=== PATIENT | male | born 1980 | race Caucasian/White ===

== ENCOUNTER 2019-08-21 12:31 | Inpatient (IN) | payer OTHER ==
[2019-08-21 14:15] VITALS: BMI 22.4
--- NOTE | 2019-08-21 15:47 | HP ---
COWS - Scale Resting Pulse: 1= [place] 81-100 Sweatin=Flushed/Facial Moisture Restless Observation: 0= Sits Still Pupil Size: 0= Normal to Room Light Bone or Joint Aches: 1= Mild Discomfort Runny Nose/ Eye Tearin= Nasal Congestion GI Upset > 30mins: 3= Vomiting/Diarrhea Tremor Observation: 2= Slight Tremor Visible Yawning Observation: 1= 1-2x During Session Anxiety or Irritability: 1=Feels Anxious/Irritable Goose Flesh Skin: 0=Smooth Skin COWS Score: 12 CIWA Score - Admission Criteria OASAS Guidelines: Admission for Medically Managed Detox: Requires at least one of the followin. CIWA greater than 12 2. Seizures within the past 24 hours 3. Delirium tremens within the past 24 hours 4. Hallucinations within the past 24 hours 5. Acute intervention needed for co occurring medical disorder 6. Acute intervention needed for co occurring psychiatric disorder 7. Severe withdrawal that cannot be handled at a lower level of care (continued vomiting, continued diarrhea, abnormal vital signs) requiring intravenous medication and/or fluids 8. Admitting History and Physical - Smoking History Smoking history: Smoker current status UNK Have you smoked in the past 12 months: No Admission ROS S - HPI Chief Complaint: Detox heroin Allergies/Adverse Reactions: Allergies Allergy/AdvReac Type Severity Reaction Status Date / Time ziprasidone [From Obidon] Allergy Severe Difficulty Verified 08/21/19 14:09 Breathing History of Present Illness: 39 year old male with history of asthma, seizures, here for heroin detox. Last here in February for detox but left that same day because he states that he is not ready. No legal problems. On Depakote 1500mg, 750 twice a day. Last took his meds day before yesterday. 2 nights ago slept outside in the rainstorm and now reports productive cough (green sputum) and pleuritic chest pain since then. Heroin: 20 bags per day, IV use in arms, last used yesterday; been using for 25 years. Longest sobriety 1 year in 2011. Has had withdrawal seizures, last in 2011 when he stopped himself. Last normal seizure was 1 month ago for which he went to [facility]. 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 Family: [place], [place]; mom, kids and family in [place] - Ebola screening Have you traveled outside of the country in the last 21 days: No Have you had contact with anyone from an Ebola affected area: No Do you have a fever: No - Review of Systems Constitutional: Chills, Fever EENT: reports: Blurred Vision, Nose Congestion Respiratory: reports: Shortness of Breath, Productive cough (green sputum) Cardiac: reports: Chest Pain (in deep inhalation) GI: reports: No Symptoms Reported, Diarrhea, Nausea, Vomiting : reports: No Symptoms Reported Musculoskeletal: reports: Back Pain, Joint Pain (wrist pain and hand pain) Integumentary: reports: No Symptoms Reported Neuro: reports: Headache, Weakness Endocrine: reports: Increased Thirst, Unexplained Weight Loss Hematology: reports: No Symptoms Reported Psychiatric: reports: Judgement Intact, Mood/Affect Appropiate, Orientated x3, Agitated, Anxious Patient History - Smoking Cessation Smoking history: Smoker current status UNK Have you smoked in the past 12 months: No Hx Chewing Tobacco Use: No - Substances abused Heroin Substance route: Injection Frequency: Daily Amount used: 15 bags or more Age of first use: 11 Date of last use: 08/20/19 Cocaine Substance route: Injection Frequency: Daily Amount used: $60 Age of first use: 12 Date of last use: 08/20/19 Admission Physical Exam BHS - Vital Signs Vital Signs: Vital Signs - 24 hr 08/21/19 14:12 Temperature 97.3 F L Pulse Rate 81 Respiratory 16 Rate Blood Pressure 108/58 L - Physical General Appearance: Yes: No Apparent Distress HEENTM: Yes: EOMI Respiratory: Yes: Chest Non-Tender, Crackles, Wheezing Breast: Yes: Within Normal Limits Cardiology: Yes: Regular Rhythm, Regular Rate Abdominal: Yes: Normal Bowel Sounds, Non Tender, Flat, Soft Back: Yes: Within Normal Limits Musculoskeletal: Yes: Within Normal Limits Extremities: Yes: Normal Capillary Refill, Normal Inspection, Normal Range of Motion, Non-Tender 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 NML intact, Fully Oriented, Alert, Motor Strength 5/5, Normal Mood/Affect Integumentary: Yes: Dry, Warm - Diagnostic (1) Heroin dependence Current Visit: Yes Status: Acute Cleared for Admission S - Detox or Rehab [facility] Level of Care: Medically Managed Breathalyzer - Breathalyzer Breathalyzer: 0 Urine Drug Screen - Test Device Lot number: [id number] Expiration date: 03/24/21 - Control Is test valid?: Yes - Results Drug screen NEGATIVE: No Urine drug screen results: THC-Marijuana, FEN-Fentanyl, MOP-Opiates Inpatient Rehab Admission - Rehab Decision to Admit Inpatient rehab admission?: No
--- NOTE | 2019-08-21 16:13 | PN ---
Teaching Attending Note Name of Resident: Justice Alonso ATTENDING PHYSICIAN STATEMENT I saw and evaluated the patient. I reviewed the resident's note and discussed the case with the resident. I agree with the resident's findings and plan as documented. SUBJECTIVE: 39 yo with h/o asthma and seizure-- here for heroin detox. On depakote for seizures. uses 2 bundles of heroin/day. OBJECTIVE: Vital Signs - 24 hr 08/21/19 14:12 Temperature 97.3 F L Pulse Rate 81 Respiratory 16 Rate Blood Pressure 108/58 L alert and oriented tremulous ASSESSMENT AND PLAN: heroin use disorder- methadone detox.
[2019-08-21] MEDS ORDERED: IBUPROFEN 400 MG TABLET (FP) PO PRN (16:31)
[2019-08-21] MEDS ORDERED: cloNIDine HCL 0.1 MG TABLET PO PRN (16:31)
[2019-08-21] MEDS ORDERED: hydrOXYzine PAMOATE 25 MG CAPSULE (FP) PO PRN (16:31)
[2019-08-21] MEDS ORDERED: MAG HYDROX/AL HYDROX/SIMETH 30 ML UNIT-DOSE CUP PO PRN (16:31)
[2019-08-21] MEDS ORDERED: MENTHOL/PHENOL 1 EACH UD MM PRN (16:31)
[2019-08-21] MEDS ORDERED: MAGNESIUM CITRATE 300 ML BOTTLE PO PRN (16:31)
[2019-08-21] MEDS ORDERED: BISMUTH SUBSALICYLATE 524 MG/30 ML UD PO PRN (16:31)
[2019-08-21] MEDS ORDERED: ACETAMINOPHEN 325 MG TABLET (FP) PO PRN ×2 (16:31)
[2019-08-21] MEDS ORDERED: MAGNESIUM HYDROX 2400MG/30ML ORAL SUSPENSION 30 ML CUP PO PRN (16:31)
[2019-08-21] MEDS ORDERED: METHADONE HCL 10 MG TABLET (FOR DETOX USE ONLY) PO ONE (17:30)
[2019-08-21] MEDS: NICOTINE 14 MG/24 HOURS TOPICAL PATCH TD SCH (17:41)
[2019-08-21] MEDS: MELATONIN 5 MG TABLETS PO PRN (22:30)
[2019-08-21] MEDS: THIAMINE HCL 100 MG TABLET (FP) PO SCH (22:30)
[2019-08-22] MEDS: METHOCARBAMOL 500 MG TABLET PO PRN ×2 (07:43→10:30)
[2019-08-22] MEDS ORDERED: METHADONE HCL 10 MG TABLET (FOR DETOX USE ONLY) ONE (09:15)
[2019-08-22] MEDS ORDERED: METHADONE HCL 5 MG TABLET (FOR DETOX USE ONLY) ONE (09:15)
[2019-08-22 10:00] LABS: HEMATOCRIT 37.3 % (35.4-49); HEMOGLOBIN 12.4 GM/dL (11.7-16.9); MCH 29.5 pg (25.7-33.7); MCHC 33.1 g/dl (32.0-35.9); MEAN CELL VOLUME 89.3 fl (80-96); MEAN PLT VOLUME 7.5 fl (7.5-11.1); PLATELET COUNT 252 K/MM3 (134-434); RBC 4.18 M/mm3 (4.00-5.60); RDW 13.3 % (11.9-15.9); WHITE BLOOD COUNT 7.4 K/mm3 (4.0-10.0)
[2019-08-22] MEDS ORDERED: METHADONE (DETOX) 20 MG, METHADONE (DETOX) 5 MG PO ONE (10:00)
[2019-08-22 10:13] LABS: ALBUMIN 3.3 g/dl (3.4-5.0); BILIRUBIN,TOTAL 0.2 mg/dL (0.2-1); BLOOD UREA NITROGEN 10.2 mg/dL (7-18); CALCIUM 8.8 mg/dL (8.5-10.1); CREATININE 0.7 mg/dL (0.55-1.3); POTASSIUM 4.4 mmol/L (3.5-5.1); TOT PROT 7.4 g/dl (6.4-8.2)
[2019-08-22] MEDS: PRENATAL VITAMINS W/ FOLIC ACID TABLET (FP) PO SCH (10:29)
[2019-08-22] MEDS: diazePAM 5 MG TABLET PO PRN ×3 (10:30→22:27)
--- NOTE | 2019-08-22 10:39 | PN ---
BHS COWS - Scale Resting Pulse: 0= [place] 80 or Below Sweatin= Chills/Flushing Restless Observation: 1= Difficult to Sit Still Pupil Size: 0= Normal to Room Light Bone or Joint Aches: 2= Severe Diffuse Aches Runny Nose/ Eye Tearin= Runny Nose/Eyes GI Upset > 30mins: 1= Stomach Cramp Tremor Observation of Outstretched Hands: 2= Slight Tremor Visible Yawning Observation: 2= >3x During Session Anxiety or Irritability: 2=Irritable/Anxious Goose Flesh Skin: 0=Smooth Skin COWS Score: 13 BHS Progress Note (SOAP) Subjective: sweats shakes body aches interrupted sleep restless irritable agitation Objective: 08/22/19 10:36 Vital Signs Temperature 98.2 F 08/22/19 09:45 Pulse Rate 65 08/22/19 09:45 Respiratory Rate 18 08/22/19 09:45 Blood Pressure 156/77 08/22/19 09:45 O2 Sat by Pulse Oximetry (%) Laboratory Tests 08/22/19 08/22/19 08:15 08:15 WBC 7.4 RBC 4.18 Hgb 12.4 Hct 37.3 MCV 89.3 MCH 29.5 MCHC 33.1 RDW 13.3 Plt Count 252 MPV 7.5 Sodium 139 Potassium 4.4 Chloride 106 Carbon Dioxide 27 Anion Gap 6 L BUN 10.2 Creatinine 0.7 Est GFR (CKD-EPI)AfAm 139.73 Est GFR (CKD-EPI)NonAf 120.56 Random Glucose 100 Calcium 8.8 Total Bilirubin 0.2 AST 23 ALT 32 Alkaline Phosphatase 70 Total Protein 7.4 Albumin 3.3 L labs noted aaox3 ambulating no acute distress Assessment: 08/22/19 10:36 withdrawals Plan: continue detox increase fluids valium 10mg prn roboxin prn clonidine 0.1mg prn
[2019-08-22] MEDS: NICOTINE 14 MG/24 HOURS TOPICAL PATCH TD SCH (11:12)
[2019-08-22] MEDS: hydrOXYzine PAMOATE 50 MG CAPSULE (FP) PO PRN ×2 (16:55→22:27)
[2019-08-22] MEDS: MELATONIN 5 MG TABLETS PO PRN (22:28)
[2019-08-22] MEDS: THIAMINE HCL 100 MG TABLET (FP) PO SCH (22:28)
[2019-08-23] MEDS: diazePAM 5 MG TABLET PO PRN ×2 (08:44→18:00)
--- NOTE | 2019-08-23 09:11 | PN ---
BHS COWS - Scale Resting Pulse: 1= [place] 81-100 Sweatin= Chills/Flushing Restless Observation: 1= Difficult to Sit Still Pupil Size: 0= Normal to Room Light Bone or Joint Aches: 2= Severe Diffuse Aches Runny Nose/ Eye Tearin= Nasal Congestion GI Upset > 30mins: 0= None Tremor Observation of Outstretched Hands: 2= Slight Tremor Visible Yawning Observation: 1= 1-2x During Session Anxiety or Irritability: 2=Irritable/Anxious Goose Flesh Skin: 0=Smooth Skin COWS Score: 11 BHS Progress Note (SOAP) Subjective: anxiety restless sweats interrupted sleep feeling better little by little Objective: 08/23/19 09:11 Vital Signs Temperature 97.9 F 08/23/19 05:47 Pulse Rate 65 08/23/19 05:47 Respiratory Rate 18 08/23/19 05:47 Blood Pressure 141/69 08/23/19 05:47 O2 Sat by Pulse Oximetry (%) Laboratory Tests 08/22/19 08/22/19 08/22/19 08:15 08:15 08:15 WBC 7.4 RBC 4.18 Hgb 12.4 Hct 37.3 MCV 89.3 MCH 29.5 MCHC 33.1 RDW 13.3 Plt Count 252 MPV 7.5 Sodium 139 Potassium 4.4 Chloride 106 Carbon Dioxide 27 Anion Gap 6 L BUN 10.2 Creatinine 0.7 Est GFR (CKD-EPI)AfAm 139.73 Est GFR (CKD-EPI)NonAf 120.56 Random Glucose 100 Calcium 8.8 Total Bilirubin 0.2 AST 23 ALT 32 Alkaline Phosphatase 70 Total Protein 7.4 Albumin 3.3 L RPR Titer Nonreactive HIV 1&2 Ag/Ab, 4th Gen 08/22/19 08:15 WBC RBC Hgb Hct MCV MCH MCHC RDW Plt Count MPV Sodium Potassium Chloride Carbon Dioxide Anion Gap BUN Creatinine Est GFR (CKD-EPI)AfAm Est GFR (CKD-EPI)NonAf Random Glucose Calcium Total Bilirubin AST ALT Alkaline Phosphatase Total Protein Albumin RPR Titer HIV 1&2 Ag/Ab, 4th Gen Non reactive aaox3 ambulating no acute distress Assessment: 08/23/19 09:11 withdrawals Plan: continue detox increase fluids
[2019-08-23] MEDS ORDERED: METHADONE HCL 10 MG TABLET (FOR DETOX USE ONLY) PO ONE (10:00)
[2019-08-23] MEDS: NICOTINE 14 MG/24 HOURS TOPICAL PATCH TD SCH (10:05)
[2019-08-23] MEDS ORDERED: LIDOCAINE 5% TOPICAL PATCH TP ONE (10:05)
[2019-08-23] MEDS ORDERED: IBUPROFEN 400 MG TABLET (FP) PO PRN (10:05)
[2019-08-23] MEDS: PRENATAL VITAMINS W/ FOLIC ACID TABLET (FP) PO SCH (10:05)
[2019-08-23] MEDS ORDERED: ALBUTEROL SO4 8 GM HFA INHALER IH PRN (15:54)
[2019-08-23 17:14] VITALS: BP 120/65; PULSE 82; TEMP 98.4
--- NOTE | 2019-08-23 18:50 | DS ---
[facility] Detox Discharge Summary Admission Date: 08/21/19 Discharge Date: 08/23/19 - History Present History: Opioid Dependence Additional Comments: Patient requested to leave AMA. Patient advised on the risk of interrupting treatment which include, relapse, overdose and . Patient denies SI/HI. Patient to follow up with primary care provider within on week. If worsening symptoms are present patient to seek medical attention or go to local ED. Patient verbalizes understanding. Pertinent Past History: Hx opioid dependence, anxiety Vital Signs Temperature 98.4 F 08/23/19 17:13 Pulse Rate 82 08/23/19 17:13 Respiratory Rate 18 08/23/19 17:13 Blood Pressure 120/65 08/23/19 17:13 O2 Sat by Pulse Oximetry (%) Laboratory Last Values WBC 7.4 K/mm3 (4.0-10.0) 08/22/19 08:15 RBC 4.18 M/mm3 (4.00-5.60) 08/22/19 08:15 Hgb 12.4 GM/dL (11.7-16.9) 08/22/19 08:15 Hct 37.3 % (35.4-49) 08/22/19 08:15 MCV 89.3 fl (80-96) 08/22/19 08:15 MCH 29.5 pg (25.7-33.7) 08/22/19 08:15 MCHC 33.1 g/dl (32.0-35.9) 08/22/19 08:15 RDW 13.3 % (11.9-15.9) 08/22/19 08:15 Plt Count 252 K/MM3 (134-434) 08/22/19 08:15 MPV 7.5 fl (7.5-11.1) 08/22/19 08:15 Sodium 139 mmol/L (136-145) 08/22/19 08:15 Potassium 4.4 mmol/L (3.5-5.1) 08/22/19 08:15 Chloride 106 mmol/L (98-107) 08/22/19 08:15 Carbon Dioxide 27 mmol/L (21-32) 08/22/19 08:15 Anion Gap 6 MMOL/L (8-16) L 08/22/19 08:15 BUN 10.2 mg/dL (7-18) 08/22/19 08:15 Creatinine 0.7 mg/dL (0.55-1.3) 08/22/19 08:15 Est GFR (CKD-EPI)AfAm 139.73 08/22/19 08:15 Est GFR (CKD-EPI)NonAf 120.56 08/22/19 08:15 Random Glucose 100 mg/dL (74-106) 08/22/19 08:15 Calcium 8.8 mg/dL (8.5-10.1) 08/22/19 08:15 Total Bilirubin 0.2 mg/dL (0.2-1) 08/22/19 08:15 AST 23 U/L (15-37) 08/22/19 08:15 ALT 32 U/L (13-61) 08/22/19 08:15 Alkaline Phosphatase 70 U/L (45-117) 08/22/19 08:15 Total Protein 7.4 g/dl (6.4-8.2) 08/22/19 08:15 Albumin 3.3 g/dl (3.4-5.0) L 08/22/19 08:15 RPR Titer Nonreactive (NONREACTIVE) 08/22/19 08:15 HIV 1&2 Ag/Ab, 4th Gen Non reactive (Non Reactive) 08/22/19 08:15 Patient Aox3 no acute distress, anxious EENT WNL No adventitious breath sounds full ROM no gait disturbance - Physical Exam Results Vital Signs: Vital Signs Temperature 98.4 F 08/23/19 17:13 Pulse Rate 82 08/23/19 17:13 Respiratory Rate 18 08/23/19 17:13 Blood Pressure 120/65 08/23/19 17:13 O2 Sat by Pulse Oximetry (%) - Treatment Hospital Course: Discharged Condition Good Patient has Accepted a Rehab Referral to: Follow up with out patinet referrals - Medication Discharge Medications: Ambulatory Orders Divalproex [Depakote -] 1,500 mg PO BID 08/21/19 traZODone HCL [Desyrel -] 50 mg PO HS 08/21/19 Naloxone HCl [Narcan] 4 mg NS [id number] #2 spray 08/23/19 - Diagnosis (1) Opioid dependence with withdrawal Current Visit: Yes Status: Acute (2) Nicotine dependence Current Visit: Yes Status: Chronic Qualifiers: Nicotine product type: cigarettes Substance use status: uncomplicated Qualified Code(s): F17.210 - Nicotine dependence, cigarettes, uncomplicated (3) Asthma Current Visit: Yes Status: Chronic - AMA Did Patient Leave Against Medical Advice: Yes
[2019-08-23] MEDS ORDERED: LIDOCAINE PATCH REMOVAL MC SCH (22:00)
[2019-08-24] MEDS ORDERED: METHADONE (DETOX) 10 MG, METHADONE (DETOX) 5 MG PO ONE (10:00)
[2019-08-24] MEDS ORDERED: LIDOCAINE 5% TOPICAL PATCH TP SCH (10:00)
[2019-08-25] MEDS ORDERED: METHADONE HCL 10 MG TABLET (FOR DETOX USE ONLY) PO ONE (10:00)
[2019-08-26] MEDS ORDERED: METHADONE HCL 5 MG TABLET (FOR DETOX USE ONLY) PO ONE (06:00)
== END 2019-08-23 19:02 | disposition left against medical advice (07) | DRG 770 ==
LOC: YASAS 12:31 → Y6N 16:49
PROVIDERS: ADMIT Allergy & Immunology; ATTEND Allergy & Immunology
PROC: HZ2ZZZZ Detoxification Services for Substance Abuse Treatment (ICD-10-PCS; principal; 2019-08-21)
DX: F11.23 Opioid dependence with withdrawal (principal); F17.210 Nicotine dependence, cigarettes, uncomplicated; J45.909 Unspecified asthma, uncomplicated; R25.1 Tremor, unspecified; Z88.8 Allergy status to other drugs, medicaments and biological substances; Z86.69 Personal history of other diseases of the nervous system and sense organs
CPT/HCPCS: 36415; 71046-TC-FY; 80053; 85027; 86593; 86803; 87389; J0735